=== PATIENT | male | born 1955 | race Caucasian/White ===

== ENCOUNTER 2019-02-05 13:15 | Emergency (ER) | payer OTHER ==
[2019-02-05 14:04] LABS: #Lymphocytes 1.9 thou/uL (1.20-3.40); #Monocytes 0.6 thou/uL (0.11-0.59); #Neutrophils 7.4 thou/uL (1.40-6.50); %Basophils 0.4 % (0.0-1.0); %Eosinophils 0.4 % (0.0-10.0); %Lymphocytes 18.8 % (21.0-51.0); %Monocytes 5.8 % (0.0-10.0); %Neutrophils 74.5 % (42.0-75.0); Hemoglobin 14.3 g/dL (14.0-18.0); Mean Corpuscular HGB CONC 34.1 g/dL (32.0-36.0); Mean Corpuscular Hemoglobin 32.9 pg (27.0-31.0); Mean Corpuscular Volume 96.5 fL (78.0-98.0); Mean Platelet Volume 8.5 fL (7.4-10.4); Platelet Count 219 thou/uL (130-400); RBC Distribution Width 12.3 % (11.5-14.5); Red Blood Cell (RBC) Count 4.34 mill/uL (4.70-6.10)
[2019-02-05 14:12] LABS: Prothrombin Time 13.1 SEC (12.0-14.7)
[2019-02-05 14:13] LABS: PTT 27.1 SEC (22.9-36.1)
[2019-02-05 14:26] LABS: ALT (SGPT) 37 U/L (8-55); AST (SGOT) 19 U/L (5-34); Albumin 4.6 g/dL (3.4-4.8); Alkaline Phosphatase 75 U/L (40-150); Anion Gap 14 mmol/L (10-20); BUN (Urea Nitrogen) 21 mg/dL (8.4-25.7); Bilirubin, Total 0.5 mg/dL (0.2-1.2); Calc. Creatinine Clearance 0 mL/min (70-130); Calcium 9.6 mg/dL (7.8-10.44); Carbon Dioxide 22 mmol/L (23-31); Chloride 107 mmol/L (98-107); Estimated GFR-MDRD 61; Glucose 107 mg/dL (80-115); Potassium 4.3 mmol/L (3.5-5.1); Protein, Total 7.6 g/dL (5.8-8.1); Sodium 139 mmol/L (136-145)
== END 2019-02-05 14:40 | disposition home or self-care (01) ==
LOC: ERS 13:15
DX: T63.061A Toxic effect of venom of other North and South American snake, accidental (unintentional), initial encounter (principal); J44.9 Chronic obstructive pulmonary disease, unspecified; E66.9 Obesity, unspecified; I10 Essential (primary) hypertension; F31.9 Bipolar disorder, unspecified; F41.9 Anxiety disorder, unspecified; F20.9 Schizophrenia, unspecified; E78.00 Pure hypercholesterolemia, unspecified; Z87.891 Personal history of nicotine dependence; Z79.899 Other long term (current) drug therapy
CPT/HCPCS: 36415; 80053; 85025; 85610; 85730; 99284

== ENCOUNTER 2019-06-02 12:48 | Outpatient (CLI) | payer OTHER ==
--- NOTE | 2019-06-02 13:01 | RAD ---
Chest 2 views HISTORY: Dyspnea. COMPARISON: 12/22/2016. FINDINGS: Cardiac silhouette and pulmonary vasculature are unremarkable. Mediastinum is midline. No c onfluent airspace consolidation, pneumothorax, or pleural fluid are apparent. IMPRESSION: Normal exam.
== END 2019-06-02 12:49 | disposition home or self-care (01) ==
LOC: RAD 12:48
PROVIDERS: ATTEND Internal Medicine Critical Care Medicine
DX: R06.00 Dyspnea, unspecified (principal)
CPT/HCPCS: 71046

== ENCOUNTER 2022-09-22 12:55 | Outpatient (CLI) | payer OTHER | END 2022-09-22 12:56 | disposition home or self-care (01) | LOC: BICCT 12:55 | PROVIDERS: ATTEND Registered Nurse | DX: Z12.2 Encounter for screening for malignant neoplasm of respiratory organs (principal); Z87.891 Personal history of nicotine dependence | CPT/HCPCS: 71271 ==

== ENCOUNTER 2024-04-09 09:40 | Outpatient (CLI) | payer MEDICARE, MEDICAID | END 2024-04-09 09:41 | disposition home or self-care (01) | LOC: BICCT 09:40 | PROVIDERS: ATTEND Registered Nurse | DX: Z13.6 Encounter for screening for cardiovascular disorders (principal); Z12.2 Encounter for screening for malignant neoplasm of respiratory organs; Z87.891 Personal history of nicotine dependence | CPT/HCPCS: 71271; 76775 ==